=== PATIENT | female | born 1985 | race Asian ===

== ENCOUNTER 2016-05-23 06:52 | Emergency (ER) | payer OTHER ==
[~2016-05-23] VITALS: Ht 167.6 cm; Wt 54.5 kg
[2016-05-23 07:02] VITALS: Ht 167.6 cm; Wt 54.5 kg
--- NOTE | 2016-05-23 07:06 | NUR ---
LAB NOTIFIED AT THIS TIME.
--- NOTE | 2016-05-23 07:09 | NUR ---
PROVIDER DR. JOVEL AT BEDSIDE.
--- NOTE | 2016-05-23 07:17 | NUR ---
LAB LAB NOTIFIED AGAIN.
--- NOTE | 2016-05-23 07:22 | ERPDOC ---
Departure Disposition Decision Date: May 23, 2016 Disposition Decision Time: 08:01 Disposition: 01 DISCHARGED HOME, SELF-CARE Impression Impression Impression: Primary Impression: Employee exposure to body fluids Severity: Mild Condition: Improved Seen By: Physician only Referrals: [facility] 2 Days Patient Instructions: Body Substance Exposure (ED) Problems/Meds/Labs Reviewed?: Yes Medications reviewed and manag: Yes Follow up care ordered?: Yes Mental Status: Alert, Oriented HPI - General Medical General Stated Complaint: BLOOD IN EYE Time Seen by Provider: 06:59 Source: patient Exam Limitations: no limitations HPI - General Medical Initial Comments 31-year-old female presents to the emergency department with a chief complaint of having blood splashed in her eye while performing a at [facility]. Patient denies any pain or discomfort. Patient flushed her eyes profusely following the incident. Patient felt that the blood did splash into both of her eyes. Patient denies any other complaints or associated symptoms. 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 She does not note any exacerbating or remitting factors. Patient's tetanus status is current. She removed her contact lenses prior to flushing her eyes. Occurred At: work Onset: Constant Allergies: Coded Allergies: No Known Allergies (Unverified , 05/23/16) Past History Past Medical History Pt denies signifigant [facility] Surgical History Denies Surgeries Family History Family History: Negative Social History Smoking Status: Never smoker Substance Use Type: does not use Alcohol Intake: none Review of Systems Constitutional Constitutional: DENIES: chills, fever Eyes General: DENIES: erythema, exudate Lids/Accessories: DENIES: erythema, swelling Vision: DENIES: acuity, blurring ENMT Ears: DENIES: drainage, pain Hearing: DENIES: hearing loss Balance: DENIES: ataxia, falling to one side Sinuses: DENIES: congestion, pain Nose: DENIES: nosebleeds, pain Mouth/Throat: DENIES: painful swallowing, sore throat Cardiovascular Cardiac: DENIES: chest pain, dyspnea on exertion Rhythm/Rate: DENIES: irregular beat, palpitations Vascular: DENIES: pedal edema, unilateral swelling Pulmonary Respiratory: DENIES: cough, dyspnea, pleuritic chest pain, sputum GI Upper Abdomen: DENIES: nausea, pain, vomiting Lower Abdomen: DENIES: diarrhea, pain General: DENIES: dysuria, frequency Musculoskeletal General: DENIES: pain, tenderness Integumentary Skin: DENIES: itching, rash Neurological General: DENIES: headache, numbness, weakness Psychiatric Psychiatric: DENIES: emotional instability, suicidal ideation/attempt Endocrine Endocrine: DENIES: polydipsia, polyphagia Hematologic/Lymphatic Hematologic/Lymphatic: DENIES: frequent nosebleeds, lymphadenopathy Allergic/Immunological Allergic/Immunoligical: DENIES: allergic reactions, hives Physical Exam General General Nourishment: well nourished, well developed, appears stated age, no acute distress, adult General Body Habitus: well groomed Vitals and Pain First Documented Vital Signs Date Time Temp Pulse Resp B/P Pulse Ox O2 Delivery O2 Flow Rate FiO2 05/23/16 07:02 98.2 74 14 109/75 99 Room Air Weight: Kilograms: Height (feet): Height (inches): Triage Pain Scale: RN VS reviewed by Provider: Yes Normal Exams: Head: Normocephalic w/o trauma Eyes: Pupils are PERRLA w/ EOMI, No scleral icterus, irritation, or foreign bodies noted ENMT: No facial trauma, nasal exudates, pharyngeal erythema, or exudates are noted Dental: No fractured, loose, or missing teeth noted Neck: Full range of motion, without adenopathy, JVD, bruits or thyromegaly Chest/Resp: Clear all oneal, with good airflow, and symmetry bilaterally CV: Regular rate and rhythm, without murmur or gallop, Pulses 2+ all extremities, capillary refill, <2 seconds all ext., no pedal edema noted Abdomen: Bowel sounds positive, soft, non-tender, non-distended, no hepatosplenomegaly, masses or bruits noted Lymphatic: No lymphadenopathy, or lymphedema noted Musculoskeletal: No tenderness, or deformity noted, good range of motion, all extremities Integumentary: No rashes, hives, or bruising noted, hair and nails, without abnormality Neurologic: Patient is alert, and oriented, cranial nerves, motor/sensory/ cerebellar, exams w/o gross deficits, to observation Psychiatric: Patient exhibits, appropriate attention, emotion and affect Differential Diagnoses Considering: Other (body fluid exposure/HIV/hepatitis b/hep c) Progress Progress Progress Patient declines to wait for results in the emergency department. She requests to be discharged home at this time. Patient is discharged home in accordance with her wishes. She is to follow up as instructed for results. She is to return to the emergency Department if her condition worsens or changes in any manner. Patient is in agreement with the current plan of management. Patient' s tetanus status is current. Patient has had hepatitis B vaccine series. Patient declines offered prophylactic medication in the emergency department for body fluid exposure. SHANTELLE JOVEL DO May 23, 2016 07:21
--- NOTE | 2016-05-23 07:29 | NUR ---
LAB AT BEDSIDE FOR BLOOD DRAW.
[2016-05-23] MEDS ORDERED: NO HOME MEDICATIONS (07:45)
[2016-05-23 08:10] VITALS: BP 107/68; PULSE 63; RESP 14; TEMP 98.2; O2SAT 100
--- NOTE | 2016-05-23 08:10 | NUR ---
DISCHARGE WRITTEN INSTRUCTIONS REVIEWED WITH PT. PT VERBALIZES UNDERSTANDING OF DI, DENIES QUESTIONS. PT AMBULATES OUT OF ER WITH STEADY GAIT AT THIS TIME.
== END 2016-05-23 08:10 | disposition home or self-care (01) ==
LOC: ED 06:52
DX: Z77.21 Contact with and (suspected) exposure to potentially hazardous body fluids (principal)